=== PATIENT | male | born 1985 | race Caucasian/White ===

== ENCOUNTER 2019-05-19 10:56 | Emergency (ER) | payer SELFPAY ==
[2019-05-19 11:21] VITALS: BP 117/70; PULSE 70; TEMP 97.9; BMI 24.2
[2019-05-19] MEDS ORDERED: CYCLOBENZAPRINE HCL 10 MG TABLET (FP) PO ONE (13:22)
[2019-05-19] MEDS ORDERED: KETOROLAC TROMETHAMINE 60 MG/2 ML VIAL IM ONE (13:22)
--- NOTE | 2019-05-19 13:22 | PDOC ---
History of Present Illness - General Chief Complaint: Back Pain Stated Complaint: BACK PAIN Time Seen by Provider: 05/19/19 12:58 History Source: Patient Exam Limitations: No Limitations Past History - Travel Traveled outside of the country in the last 30 days: No Close contact w/someone who was outside of country & ill: No - Past Medical History Allergies/Adverse Reactions: Allergies Allergy/AdvReac Type Severity Reaction Status Date / Time No Known Allergies Allergy Verified 05/19/19 11:17 Home Medications: Ambulatory Orders NK [No Known Home Medication] 05/19/19 - Psycho Social/Smoking Cessation Hx Smoking History: Never smoked Hx Alcohol Use: No Drug/Substance Use Hx: No Review of Systems - Review of Systems Able to Perform ROS?: Yes Comments:: 05/19/19 13:23 CONSTITUTIONAL: Absent: fever, chills, diaphoresis, generalized weakness, malaise, loss of appetite GASTROINTESTINAL: Absent: abdominal pain, abdominal distension, nausea, vomiting, diarrhea, constipation, melena, hematochezia GENITOURINARY: Absent: dysuria, frequency, urgency, hesitancy, hematuria, flank pain, genital pain MUSCULOSKELETAL: Present: mid back pain Absent: arthralgia, joint swelling SKIN: Absent: rash, itching, pallor NEUROLOGIC: Absent: headache, focal weakness or paresthesias, dizziness, unsteady gait, seizure, mental status changes, bladder or bowel incontinence PSYCHIATRIC: Absent: anxiety, depression, suicidal or homicidal ideation, hallucinations. Is the patient limited [place] proficient: No *Physical Exam - Vital Signs Last Vital Signs Temp Pulse Resp BP Pulse Ox 97.9 F 70 18 117/70 99 05/19/19 11:19 05/19/19 11:19 05/19/19 11:19 05/19/19 11:19 05/19/19 11:19 - Physical Exam 05/19/19 13:23 GENERAL: Well developed, well nourished. Awake and alert. No acute distress. NECK: Supple. Full ROM. No lymphadenopathy. MUSCULOSKELETAL TTP of the L paraspinous muscles, T10-T12, with palpable knot consistent with muscle spasm. No midline tenderness. Normal range of motion at all joints. No bony deformities or tenderness. No CVA tenderness. EXTREMITIES: No cyanosis. No clubbing. No edema. No calf tenderness. SKIN: Warm and dry. Normal capillary refill. No rashes. No jaundice. NEUROLOGICAL: Alert, awake, appropriate. Cranial nerves 2-12 intact. No deficits to light touch and temperature in face, upper extremities and lower extremities. No motor deficits in the in face, upper extremities and lower extremities. Normoreflexic in the upper and lower extremities. Normal speech. Toes are down-going bilaterally. Gait is normal without ataxia. PSYCHIATRIC: Cooperative. Good eye contact. Appropriate mood and affect. Medical Decision Making - Medical Decision Making 05/19/19 13:23 The patient is a 34-year-old male no past medical history who presents to the ER with mid back pain starting last night. He states he lifted heavy plywood at work and had pain on his right mid back since then. He took Advil last night with some relief of his symptoms. He states he came to the ER today because when he woke up he still had pain. Denies numbness and tingling to the legs, saddle anesthesia and bladder bowel incontinence. He also denies upper arm numbness and tingling. A/P: Back pain -Pt with TTP of the L paraspinous muscles, T10-T12, with palpable knot consistent with muscle spasm. No midline tenderness. -No trauma, or fever. No saddle anesthesia or bladder/bowel incontinence. No CVA tenderness. -Pt is neurologically intact on exam with no focal findings. -Toradol given with relief of symptoms -DC home. Ortho follow up given for if symptoms do not resolve. -I discussed the physical exam findings, ancillary test results and final diagnoses with the patient. I answered all of the patient's questions. The patient was satisfied with the care received and felt comfortable with the discharge plan and treatment plan. The Patient agrees to follow up with the primary care physician/specialist within 24-72 hours. Return precautions were given. Discharge - Discharge Information Problems reviewed: Yes Clinical Impression/Diagnosis: Back pain Qualifiers: Back pain location: thoracic back pain Chronicity: acute Back pain laterality: left Qualified Code(s): M54.6 - Pain in thoracic spine Condition: Stable Disposition: HOME - Admission No - Follow up/Referral Referrals: Louis Walker MD [Staff Physician] - - Patient Discharge Instructions Patient Printed Discharge Instructions: DI for Thoracic Back Pain Additional Instructions: You have back pain due to a muscle spasm. Please take Advil 600 mg 4 times (3, 200 mg tablets) a day not to exceed 3000 mg a day. You were also prescribed Flexeril. Please take this medication every 8 hours for the first day. Then take the medication before you go to bed. Do not drive after taking this medication as it may make you sleepy. You may use warm compresses on your back to help with her symptoms. Please follow-up with your primary care doctor. If your symptoms do not resolve in 3-5 days, follow-up with orthopedics. A referral has been provided for you. Return to the emergency department if you have worsening back pain, bladder or bowel incontinence, numbness and tingling in her legs, changes in the way you walk, or any new or worsening symptoms. - Post Discharge Activity Work/Back to School Note: Back to Work
[2019-05-19] MEDS ORDERED: LIDOCAINE 5% TOPICAL PATCH ONE (13:23)
[2019-05-19] MEDS ORDERED: KETOROLAC TROMETHAMINE 60 MG/2 ML VIAL ONE (13:23)
[2019-05-19] MEDS ORDERED: LIDOCAINE 5% TOPICAL PATCH TP ONE (13:25)
== END 2019-05-19 13:29 | disposition home or self-care (01) ==
LOC: JERFT 10:56
PROC: 3E0233Z Introduction of Anti-inflammatory into Muscle, Percutaneous Approach (ICD-10-PCS; principal; 2019-05-19)
DX: M54.6 Pain in thoracic spine (principal)
CPT/HCPCS: 99284-25

== ENCOUNTER 2020-03-27 09:19 | Emergency (ER) | payer OTHER ==
[2020-03-27 09:32] VITALS: BP 140/88; PULSE 99; TEMP 98.1; BMI 27.4
== END 2020-03-27 10:51 | disposition home or self-care (01) ==
LOC: JER 09:19
DX: J06.9 Acute upper respiratory infection, unspecified (principal); J02.9 Acute pharyngitis, unspecified
CPT/HCPCS: 71046-TC-FY; 87070; 87880; 99284-25; C9803; U0003

== ENCOUNTER 2021-12-31 18:45 | Emergency (ER) | payer OTHER ==
[2021-12-31 19:05] VITALS: BP 137/84; PULSE 64; RESP 18; TEMP 98; BMI 28.3
[2021-12-31] MEDS ORDERED: IBUPROFEN 600 MG TABLET (FP) PO ONE ×2 (20:51→20:52)
== END 2021-12-31 20:57 | disposition home or self-care (01) ==
LOC: JERFT 18:45
DX: S99.912A Unspecified injury of left ankle, initial encounter (principal); Y93.66 Activity, soccer
CPT/HCPCS: 73630-TC-LT; 99283-25